=== PATIENT | male | born 1975 | race American Indian/Alaskan Native ===

== ENCOUNTER 2017-02-15 14:04 | Emergency (ER) | payer OTHER ==
[2017-02-15 15:17] VITALS: BP 145/100
[2017-02-15] MEDS ORDERED: CLARITIN PO ONE (16:37)
--- NOTE | 2017-02-15 16:44 | Emergency Department Report ---
Entered by TOÑITO COTTER, acting as scribe for ADELE IBRAHIM PA. - General Chief Complaint: Upper Respiratory Infection Stated Complaint: COLD SYMPTOMS Time Seen by Provider: 02/15/17 16:11 Source: patient Mode of arrival: Ambulatory Limitations: No Limitations - History of Present Illness Initial Comments: 41 year old male with no significant PMHx presents to the ED c/o an upper respiratory infection that began 5 days ago. Associated symptoms include cough with yellow sputum, congestion, and rhinorrhea, but he denies fever, nausea, vomiting, diarrhea, ear pain, eye pain, SOB, vision changes, abdominal pain, and chest pain. Denies having seasonal allergies. NKDA. HALEY Complaint: cough (with yellow sputum), rhinorrhea, nasal congestion Onset/Timin -: days(s) Severity: moderate Consistency: constant Improves With: nothing Worsens With: nothing Associated Symptoms: denies other symptoms, rhinorrhea, nasal congestion, cough. denies: fever, chills, headache, sore throat, stiff neck, chest pain, shortness of breath, abdominal pain, nausea, vomiting, diarrhea, rash, ear pain , other (vision changes, eye pain, and ear pain) Treatments Prior to Arrival: none - Related Data Previous Rx's Medication Instructions Recorded Last Taken Type Benzonatate [Tessalon Perles] 100 mg PO Q8HR #15 capsule 02/15/17 Unknown Rx Cetirizine HCl [ZyrTEC] 10 mg PO DAILY #20 capsule 02/15/17 Unknown Rx guaiFENesin [Mucinex] 600 mg PO BID #14 tab.er.12h 02/15/17 Unknown Rx Allergies Allergy/AdvReac Type Severity Reaction Status Date / Time No Known Allergies Allergy Unverified 03/07/14 18:39 ED Review of Systems Comment: All other systems reviewed and negative Constitutional: denies: chills, fever Eyes: denies: eye pain, vision change ENT: congestion, other (rhinorrhea). denies: ear pain, throat pain Respiratory: cough (with yellow sputum). denies: orthopnea, shortness of breath , SOB with exertion, SOB at rest, stridor Cardiovascular: denies: chest pain, dyspnea on exertion, orthopnea Gastrointestinal: denies: abdominal pain, nausea, vomiting, diarrhea Skin: denies: rash ED Past Medical Hx - Past Medical History Previous Medical History?: No - Surgical History Past Surgical History?: No - Social History Smoking Status: Never Smoker Substance Use Type: None - Medications Home Medications: Home Medications Medication Instructions Recorded Confirmed Last Taken Type Benzonatate [Tessalon Perles] 100 mg PO Q8HR #15 capsule 02/15/17 Unknown Rx Cetirizine HCl [ZyrTEC] 10 mg PO DAILY #20 capsule 02/15/17 Unknown Rx guaiFENesin [Mucinex] 600 mg PO BID #14 tab.er.12h 02/15/17 Unknown Rx ED Physical Exam - General Limitations: No Limitations General appearance: alert, in no apparent distress - Head Head exam: Present: atraumatic, normocephalic - Eye Eye exam: Present: normal appearance, EOMI Pupils: Present: normal accommodation - ENT ENT exam: Present: normal exam, mucous membranes moist, TM's normal bilaterally , normal external ear exam - Expanded ENT Exam Expanded Ear exam: Present: normal external inspection Mouth exam: Present: normal external inspection Teeth exam: Present: normal inspection Throat exam: Positive: normal inspection. Negative: tonsillar erythema, tonsillomegaly, tonsillar exudate - Neck Neck exam: Present: normal inspection, full ROM. Absent: tenderness, lymphadenopathy - Respiratory Respiratory exam: Present: normal lung sounds bilaterally. Absent: respiratory distress, wheezes, rales, rhonchi, stridor - Cardiovascular Cardiovascular Exam: Present: regular rate, normal rhythm. Absent: systolic murmur, diastolic murmur, rubs, gallop - GI/Abdominal GI/Abdominal exam: Present: soft. Absent: distended - Extremities Exam Extremities exam: Present: normal inspection, full ROM - Back Exam Back exam: Present: normal inspection, full ROM - Neurological Exam Neurological exam: Present: alert, oriented X3 - Psychiatric Psychiatric exam: Present: normal affect, normal mood - Skin Skin exam: Present: warm, dry, intact. Absent: rash ED Course Vital Signs 02/15/17 15:04 Temperature 98.1 F Pulse Rate 97 H Respiratory 20 Rate Blood Pressure 145/100 O2 Sat by Pulse 98 Oximetry ED Medical Decision Making - Medical Decision Making 41-year-old male presents to the ED with allergic bronchitis. ED course: Patient was given Pitocin E seen ED Discussed daily medication for allergies. Discussed home medication of Zyrtec daily. Discussed cough suppressant. Discussed with patient her primary care physician. Vital signs are normal patient is in no acute or respiratory distress. ED Disposition Clinical Impression: Bronchitis Disposition: DISCHARGED TO HOME OR SELFCARE Is pt being admited?: No Does the pt Need Aspirin: No Condition: Stable Instructions: Acute Bronchitis (ED) Prescriptions: Benzonatate [Tessalon Perles] 100 mg PO Q8HR #15 capsule Cetirizine HCl [ZyrTEC] 10 mg PO DAILY #20 capsule guaiFENesin [Mucinex] 600 mg PO BID #14 tab.er.12h Referrals: PRIMARY CAREMD [Primary Care Provider] - 3-5 Days DENITA GUTIERREZ MD [Referring] - 3-5 Days [facility] [Outside] - 3-5 Days [facility] [Outside] - 3-5 Days Forms: Work/School Release Form(ED) Time of Disposition: 16:42 This documentation as recorded by the VAHE pierce JASMINE,accurately reflects the service I personally performed and the decisions made by PATRICE solano OYINLOLA A, PA.
[2017-02-15] MEDS ORDERED: ROBITUSSIN AC PO ONE (17:00)
== END 2017-02-15 16:54 | disposition home or self-care (01) ==
LOC: ED 14:04
DX: J40 Bronchitis, not specified as acute or chronic (principal)
CPT/HCPCS: 99282

== ENCOUNTER 2017-11-01 16:45 | Emergency (ER) | payer OTHER ==
[2017-11-01] MEDS ORDERED: TYLENOL PO ONE (19:34)
[2017-11-02] MEDS ORDERED: ROBITUSSIN PO ONE (11:08)
[2017-11-02] MEDS ORDERED: MOTRIN PO ONE (11:08)
[2017-11-02] MEDS ORDERED: DELTASONE PO ONE (11:08)
--- NOTE | 2017-11-02 11:15 | Emergency Department Report ---
Minor Respiratory - HPI Chief Complaint: Weakness Stated Complaint: MENA/ V / DIZZY Time Seen by Provider: 11/02/17 10:43 Duration: 2 Days Severity: moderate Minor Respiratory: Yes Rhinorrhea, Yes Sore Throat, Yes Able to Tolerate Fluids , Yes Cough, Yes Fever, No Ear Pain, No Sick Contacts, No Hemoptysis, No Chest Pain, No Shortness of Breath Other History: Patient is a 42-year-old male who presents to ED complaining of generalized body aches and weakness and fever that got worse yesterday. He was running nose, intermittent yellow productive cough, ED Review of Systems ROS: Stated complaint: MENA/ V / DIZZY Other details as noted in HPI Constitutional: fever, malaise. denies: chills Eyes: denies: eye pain, eye discharge, vision change ENT: denies: ear pain, throat pain Respiratory: cough. denies: shortness of breath, wheezing Cardiovascular: denies: chest pain, palpitations Endocrine: no symptoms reported Gastrointestinal: denies: abdominal pain, nausea, vomiting, diarrhea, constipation, hematemesis Genitourinary: denies: urgency, dysuria, frequency, hematuria Musculoskeletal: denies: back pain, joint swelling, arthralgia Skin: denies: rash, lesions Neurological: denies: headache, weakness, numbness, paresthesias, confusion Psychiatric: denies: anxiety, depression Hematological/Lymphatic: denies: easy bleeding, easy bruising ED Past Medical Hx - Past Medical History Previous Medical History?: No - Surgical History Past Surgical History?: No - Social History Smoking Status: Never Smoker Substance Use Type: None - Medications Home Medications: Home Medications Medication Instructions Recorded Confirmed Last Taken Type Cetirizine HCl [ZyrTEC] 10 mg PO DAILY #20 capsule 02/15/17 Unknown Rx guaiFENesin [Mucinex] 600 mg PO BID #14 tab.er.12h 02/15/17 Unknown Rx Azithromycin [Zithromax Z-CHRISSIE] 250 mg PO DAILY #6 tablet 11/02/17 Unknown Rx Benzonatate [Tessalon Perles] 100 mg PO Q8HR #15 capsule 11/02/17 Unknown Rx Ibuprofen [Motrin] 800 mg PO Q8HR PRN #30 tablet 11/02/17 Unknown Rx Oseltamivir [Tamiflu] 75 mg PO BID #14 cap 11/02/17 Unknown Rx Minor Respiratory Exam - Exam General: Vital signs noted. No distress. Alert and acting appropriately. HEENT: Yes Moist Mucous Membranes, No Pharyngeal Erythema, No Pharyngeal Exudates, No Rhinorrhea, No Conjuctival Injection, No Frontal Tenderness, No Maxillary Tenderness Ear: Neither TM Bulge, Neither TM Erythema, Neither EAC Pain, Neither EAC Discharge Neck: Yes Supple, No Adenopathy Lungs: Yes Good Air Exchange, No Wheezes, No Ronchi, No Stridor, No Cough, No Labored Respirations, No Retractions, No Use of Accessory Muscles, No Other Abnormal Lung Sounds Heart: Yes Regular, No Murmur Abdomen: Yes Normal Bowel Sounds, No Tenderness, No Peritoneal Signs Skin: No Rash, No Edema Neurologic: Alert and oriented, no deficits. Musculoskeletal: Unremarkable. ED Course Vital Signs 11/01/17 19:29 Temperature 102.1 F H Pulse Rate 120 H Respiratory 16 Rate Blood Pressure 131/72 O2 Sat by Pulse 96 Oximetry - Reevaluation(s) Reevaluation #1: I discussed the patient and his chest x-ray results and will need to get some blood work to evaluate more that he can be discharged or needs to be admitted. At this point patient states he is feeling much better. Patient is able to drink 2 cans of orange juice and eat a peanut butter and jelly sandwich. 11/02/17 12:56 ED Medical Decision Making - Lab Data Result diagrams: 11/02/17 12:57 11/02/17 12:57 Laboratory Last Values WBC 4.6 K/mm3 (4.5-11.0) 11/02/17 12:57 RBC 5.21 M/mm3 (3.65-5.03) H 11/02/17 12:57 Hgb 13.9 gm/dl (11.8-15.2) 11/02/17 12:57 Hct 43.5 % (35.5-45.6) 11/02/17 12:57 MCV 84 fl (84-94) 11/02/17 12:57 MCH 27 pg (28-32) L 11/02/17 12:57 MCHC 32 % (32-34) 11/02/17 12:57 RDW 13.8 % (13.2-15.2) 11/02/17 12:57 Plt Count 185 K/mm3 (140-440) 11/02/17 12:57 Lymph % (Auto) 9.5 % (13.4-35.0) L 11/02/17 12:57 Archuleta % (Auto) 9.2 % (0.0-7.3) H 11/02/17 12:57 Eos % (Auto) 0.0 % (0.0-4.3) 11/02/17 12:57 Baso % (Auto) 0.3 % (0.0-1.8) 11/02/17 12:57 Lymph # 0.4 K/mm3 (1.2-5.4) L 11/02/17 12:57 Archuleta # 0.4 K/mm3 (0.0-0.8) 11/02/17 12:57 Eos # 0.0 K/mm3 (0.0-0.4) 11/02/17 12:57 Baso # 0.0 K/mm3 (0.0-0.1) 11/02/17 12:57 Seg Neutrophils % 81.0 % (40.0-70.0) H 11/02/17 12:57 Seg Neutrophils # 3.7 K/mm3 (1.8-7.7) 11/02/17 12:57 Sodium 136 mmol/L (137-145) L 11/02/17 12:57 Potassium 4.2 mmol/L (3.6-5.0) 11/02/17 12:57 Chloride 98.6 mmol/L (98-107) 11/02/17 12:57 Carbon Dioxide 24 mmol/L (22-30) 11/02/17 12:57 Anion Gap 18 mmol/L 11/02/17 12:57 BUN 8 mg/dL (9-20) L 11/02/17 12:57 Creatinine 0.7 mg/dL (0.8-1.5) L 11/02/17 12:57 Estimated GFR > 60 ml/min 11/02/17 12:57 BUN/Creatinine Ratio 11 % 11/02/17 12:57 Glucose 314 mg/dL (75-100) H 11/02/17 12:57 Lactic Acid 1.40 mmol/L (0.7-2.0) 11/02/17 12:57 Calcium 8.3 mg/dL (8.4-10.2) L 11/02/17 12:57 Vital Signs 11/01/17 11/02/17 19:29 14:13 Temperature 102.1 F H 98.7 F Pulse Rate 120 H 94 H Respiratory 16 16 Rate Blood Pressure 131/72 Blood Pressure 137/89 [Left] O2 Sat by Pulse 96 100 Oximetry - Radiology Data Radiology results: report reviewed, image reviewed cc: LUIS DANIEL BARAHONA Fluoro Time In Minutes: CHEST 2 VIEWS INDICATION: Cough. COMPARISON: None similar at this institution. FINDINGS: Frontal and lateral chest radiographs suggest mild left lower lung opacity/pneumonia, slightly obscuring the left hemidiaphragm. Clear remainder lungs without significant pleural effusions or CHF. Mild exaggerated cardiomediastinal silhouette. Intact bones. CONCLUSION: Left lower lobe pneumonia, as described. Please correlate. Thank you for the opportunity to participate in this patient's care. Transcribed By: RS Dictated By: TAN ACKERMAN MD Electronically Authenticated By: TAN ACKERMAN MD Signed Date/Time: 11/02/17 1142 - Medical Decision Making 42-year-old male presents with influenza B flu with pneumonia ED course: CBC, BMP, lactic acid and then pH ordered. Chest x-ray shows mild left lower long pneumonia. Rapid influenza a negative rapid influenza be positive. I discussed all findings with the patient. Patient received 1 L of fluids, prednisone, Motrin, Robitussin the ED. Fever reduced while in ED. Patient reports feeling much better. I discussed the patient to follow up with primary care physician. I also discussed the patient's symptoms worsen or new symptoms arise to return to ED I discussed with the patient to take his medication as prescribed. I discussed case with attending Dr. Musa who agrees with plan. Vital signs normal, patient is in no acute or respiratory distress. Critical care attestation.: If time is entered above; I have spent that time in minutes in the direct care of this critically ill patient, excluding procedure time. ED Disposition Clinical Impression: Influenza with bronchopneumonia Disposition: DC-01 TO HOME OR SELFCARE Is pt being admited?: No Does the pt Need Aspirin: No Condition: Stable Instructions: Viral Pneumonia (ED), Chronic Bronchitis (ED), Community- acquired Pneumonia (ED) Additional Instructions: Make sure to follow up with the primary care physician as discussed. Take all your medications as you've been prescribed. If you have any worsening symptoms or develop new symptoms please return to ED immediately. Prescriptions: Azithromycin [Zithromax Z-CHRISSIE] 250 mg PO DAILY #6 tablet Benzonatate [Tessalon Perles] 100 mg PO Q8HR #15 capsule Ibuprofen [Motrin] 800 mg PO Q8HR PRN #30 tablet PRN Reason: Pain Oseltamivir [Tamiflu] 75 mg PO BID #14 cap Referrals: KAM MARTINEZ MD [Primary Care Provider] - 3-5 Days [facility] [Outside] - 3-5 Days [facility] [Outside] - 3-5 Days [facility] [Outside] - 3-5 Days Forms: Work/School Release Form(ED) Time of Disposition: 14:01
--- NOTE | 2017-11-02 11:49 | XRay Report ---
CHEST 2 VIEWS INDICATION: Cough. COMPARISON: None similar at this institution. FINDINGS: Frontal and lateral chest radiographs suggest mild left lower lung opacity/pneumonia, slightly obscuring the left hemidiaphragm. Clear remainder lungs without significant pleural effusions or CHF. Mild exaggerated cardiomediastinal silhouette. Intact bones. CONCLUSION: Left lower lobe pneumonia, as described. Please correlate. Thank you for the opportunity to participate in this patient's care.
[2017-11-02] MEDS ORDERED: NACL 0.9% 1000 ML 1,000 ML IV ONE (12:07)
[2017-11-02 13:15] LABS: Basophils % (Auto) 0.3 % (0.0-1.8); Hematocrit 43.5 % (35.5-45.6); Hemoglobin 13.9 gm/dl (11.8-15.2); Lymphocytes # (Auto) 0.4 K/mm3 (1.2-5.4); Lymphocytes % (Auto) 9.5 % (13.4-35.0); Mean Corpuscular HGB Conc 32 % (32-34); Mean Corpuscular Hemoglobin 27 pg (28-32); Mean Corpuscular Volume 84 fl (84-94); Monocytes # (Auto) 0.4 K/mm3 (0.0-0.8); Monocytes % (Auto) 9.2 % (0.0-7.3); Platelet Count 185 K/mm3 (140-440); Red Blood Count 5.21 M/mm3 (3.65-5.03); Red Cell Distribution Width 13.8 % (13.2-15.2)
[2017-11-02 13:37] LABS: BUN/Creatinine Ratio 11; Blood Urea Nitrogen 8 mg/dL (9-20); Calcium 8.3 mg/dL (8.4-10.2); Hemolysis Index 4
[2017-11-02 14:14] VITALS: BP 137/89
== END 2017-11-02 14:13 | disposition home or self-care (01) ==
LOC: ED 16:45
DX: J11.00 Influenza due to unidentified influenza virus with unspecified type of pneumonia (principal)
CPT/HCPCS: 36415; 71046; 80048; 82140; 85025; 87116; 87400; 87430; 93005; 93010; 96360; 99284; J7030; J7512